=== PATIENT | female | born 1955 | race Caucasian/White ===

== ENCOUNTER 2018-02-02 08:35 | Emergency (ER) | payer BC ==
[2018-02-02 08:42] VITALS: BP 115/51; PULSE 64; RESP 18; TEMP 98.6; O2SAT 94
[2018-02-02] MEDS ORDERED: SKIN ADHESIVE (DERMABOND) 1 EACH TP ONE (08:46)
--- NOTE | 2018-02-02 08:49 | EDPHY ---
HPI/HX/ROS/PE/MDM Narrative: CHIEF COMPLAINT: Forehead laceration HPI: The patient is a 62-year-old female with a history of seizure disorder. Just prior to arrival, the patient accidentally struck her forehead on the open door of a van. Bleeding was controlled with pressure. She denies loss of consciousness. She denies other injury. REVIEW OF SYSTEMS: Aside from elements discussed in the HPI, a comprehensive 10-point review of systems was reviewed and is negative. PMH: Includes petite mal seizures, history of mastectomy, not currently on anticoagulants. SOCIAL HISTORY: Denies drug abuse. PHYSICAL EXAM: General:Patient is alert, in no acute distress. Head: A 1.5 cm linear laceration is present at the hairline of the forehead. There is no active bleeding. Wound edges are well approximated. No deformity or depression. ENT:Eyes are normal to inspection. ENT inspection normal. Neck: Normal inspection. Full range of motion. Neuro: Oriented x3. Normal motor function. Normal sensory function. ED Course: Procedure: Laceration repair with skin glue. The 1.5cm laceration on the forehead was cleaned and explored to its base. There were no deep structures involved. The wound was repaired with tissue adhesive, with excellent wound approximation. The procedure was performed by myself. General Time Seen by Provider: 02/02/18 08:42 Initial Vital Signs: Initial Vital Signs Temperature (C) 37 C 02/02/18 08:39 Heart Rate 64 02/02/18 08:39 Respiratory Rate 18 02/02/18 08:39 Blood Pressure 115/51 L 02/02/18 08:39 O2 Sat (%) 94 02/02/18 08:39 O2 Delivery Mode Room Air Allergies/Adverse Reactions: cephalexin [From Keflex] Allergy (Verified 02/02/18 08:42) Rash Home Medications: Medication Instructions Recorded [place] 02/02/18 Departure - Departure Disposition: Home, Routine, Self-Care Clinical Impression: Forehead laceration Condition: Good Instructions: Facial Laceration (ED) Additional Instructions: Return to the Emergency Department for fever, redness, discharge from wound, increasing pain or other worsening of condition. Do not use antibiotic ointment over this laceration as this will dissolve the skin adhesive. Referrals: Faye Gordon MD [Primary Care Provider] - As per Instructions
== END 2018-02-02 09:00 | disposition home or self-care (01) ==
LOC: CED 08:35
PROC: 0HQ1XZZ Repair Face Skin, External Approach (ICD-10-PCS; principal; 2018-02-02)
DX: S01.81XA Laceration without foreign body of other part of head, initial encounter (principal); W22.8XXA Striking against or struck by other objects, initial encounter